=== PATIENT | male | born 1975 | race Caucasian/White ===

== ENCOUNTER 2022-07-07 10:51 | Emergency (ER) | payer MEDICAID ==
[2022-07-07] MEDS ORDERED: Lidocaine 1% 5 ML VIAL INJECT ONE (11:00)
[2022-07-07] MEDS ORDERED: Bacitracin Oint 1 GM U/D Packet TOP ONE (11:00)
== END 2022-07-07 11:57 | disposition home or self-care (01) ==
LOC: JP.ED 10:51
DX: S01.111A Laceration without foreign body of right eyelid and periocular area, initial encounter (principal); I10 Essential (primary) hypertension; M10.9 Gout, unspecified; Z72.0 Tobacco use; Z79.899 Other long term (current) drug therapy; W26.8XXA Contact with other sharp object(s), not elsewhere classified, initial encounter
CPT/HCPCS: 12013; 99282-25

== ENCOUNTER 2023-02-22 06:14 | Day surgery (SDC) | payer MEDICAID ==
[2023-02-22] MEDS ORDERED: Midazolam 1 MG/ML 2 ML SDV ONE (07:26)
[2023-02-22] MEDS ORDERED: Propofol 200 MG/20 ML SDV ONE (07:26)
[2023-02-22] MEDS ORDERED: fentaNYL 100 MCG/2 ML SDV ONE (07:26)
[2023-02-22] MEDS ORDERED: Sodium Chloride 0.9% 1,000 ML IV SCH (08:00)
== END 2023-02-22 09:04 | disposition home or self-care (01) ==
LOC: JP.SDS 06:14
PROVIDERS: ATTEND Surgery
DX: Z12.11 Encounter for screening for malignant neoplasm of colon (principal); K62.1 Rectal polyp; G47.33 Obstructive sleep apnea (adult) (pediatric); I10 Essential (primary) hypertension; M10.9 Gout, unspecified; F41.9 Anxiety disorder, unspecified; F32.A Depression, unspecified
CPT/HCPCS: 45380; 88305; J2250; J2704; J3010; J7030